=== PATIENT | female | born 1980 | race African-American/Black ===

== ENCOUNTER 2016-09-16 16:00 | Inpatient (IN) | payer OTHER ==
[2016-09-16] MEDS ORDERED: BUTORPHANOL TARTRATE 1 MG/ML VIAL IVPB ONE (16:43)
[2016-09-16] MEDS ORDERED: PROMETHAZINE HCL 25 MG/1 ML VIAL IVPUSH ONE (16:43)
[2016-09-16] MEDS ORDERED: ELECTROLYTE-148 SOLN 1,000 ML IV SCH (16:45)
[2016-09-16] MEDS ORDERED: DINOPROSTONE 10 MG VAGINAL SUPPOSITORY VG ONE (16:46)
--- NOTE | 2016-09-16 16:51 | HP ---
Past Medical History - Admission Chief Complaint: Elective Induction History of Present Illness: 35 yo G P LMP EDC EGA 39 weeks for elective induction for cervidil History Source: Patient - Past Medical History ...: 5 ...Para: 3 ...Spon : 1 ...EDC by Bogdan: 09/23/16 - Past Surgical History Hx Myomectomy: No Hx Transabdominal Cerclage: No Additional Surgical History: Leep - Smoking History Smoking history: Never smoked Have you smoked in the past 12 months: No - Alcohol/Substance Use Hx Alcohol Use: No History of Substance Use: reports: None - Social History Usual Living Arrangement: Yes: With Spouse Home Medications - Allergies Allergies/Adverse Reactions: Allergies Allergy/AdvReac Type Severity Reaction Status Date / Time No Known Drug Allergies Allergy Verified 09/14/16 14:57 - Home Medications Home Medications: Ambulatory Orders NK [No Known Home Medication] 09/14/16 Review of Systems - Review of Systems Constitutional: reports: No Symptoms Eyes: reports: No Symptoms HENT: reports: No Symptoms Neck: reports: No Symptoms Cardiovascular: reports: No Symptoms Respiratory: reports: No Symptoms Gastrointestinal: reports: No Symptoms Genitourinary: reports: No Symptoms Breasts: reports: No Symptoms Reported Musculoskeletal: reports: No Symptoms Integumentary: reports: No Symptoms Neurological: reports: No Symptoms Endocrine: reports: No Symptoms Hematology/Lymphatic: reports: No Symptoms Psychiatric: reports: No Symptoms Physical Exam - Maternity Constitutional: Yes: Well Nourished, No Distress Neck: Yes: WNL Cardiovascular: Yes: WNL, Regular Rate and Rhythm Breast(s): Yes: WNL - Abdominal Exam/OB Fundal Height: 39 Number of Fetuses: Single Presentation: Vertex Contractions: Yes Heart Rate Location: [facility] Category: I Decelerations: None - Vaginal Exam/OB Dilatation (cm): 2-3 cm Effacement (%): 100 Amniotic Membrane Status: Intact Presentation: Vertex/Position Station: -2 - Physical Exam Edema: No Hemorrhage Risk Assessment - Risk Factors Risk Score: 0 Risk Level: Low Risk Problem List - Problems (1) Elective induction of labor planned Code(s): [id number] - Assessment/Plan IUP at 39 weeks elective induction x 3 Spont ab x 1 Plan cervidil
[2016-09-16 17:25] VITALS: BMI 26.4
[2016-09-16 18:25] LABS: BASOPHIL 0.3 % (0-2.0); EOSINOPHIL 2.3 % (0-4.5); MCH 27.2 pg (25.7-33.7); MCHC 33.8 g/dl (32.0-36.0); MEAN CELL VOLUME 80.6 fl (80-96); MEAN PLT VOLUME 8.7 fl (7.5-11.1); NEUTROPHILS 63.5 % (42.8-82.8); PLATELET COUNT 150 K/MM3 (134-434); RDW 14.8 % (11.6-15.6); WHITE BLOOD COUNT 6.8 K/mm3 (4.0-10.0)
[2016-09-16 18:37] LABS: INR 1.01 (0.82-1.09); PROTHROMBIN TIME (PATIENT) 11.1 SEC (9.98-11.88)
[2016-09-16 18:40] LABS: ACTIVATED PTT 27.4 SECONDS (26.9-34.4)
[2016-09-16 18:53] LABS: CALCIUM 8.7 mg/dL (8.5-10.1); CREATININE 0.7 mg/dL (0.55-1.02)
[2016-09-17] MEDS ORDERED: OXYTOCIN 15 UNITS/ LR 250 ML 250 ML IVPB SCH (04:30)
[2016-09-17] MEDS ORDERED: WITCH HAZEL 50% (TUCKS) 40 PAD/JAR PAD TP PRN (05:05)
[2016-09-17] MEDS ORDERED: BISACODYL 10 MG SUPP.RECT RC PRN (05:05)
[2016-09-17] MEDS ORDERED: ACETAMINOPHEN 325 MG TABLET (FP) PO PRN (05:05)
[2016-09-17] MEDS ORDERED: BENZOCAINE 20% 57 GM BOTTLE TP PRN (05:05)
[2016-09-17] MEDS ORDERED: IBUPROFEN 600 MG TABLET (FP) PO PRN (05:05)
[2016-09-17] MEDS ORDERED: METHYLERGONOVINE MALEATE 0.2 MG/1 ML AMP IM PRN (05:05)
[2016-09-17] MEDS ORDERED: BENZOCAINE 28 GM HEMORRHOIDAL OINTMENT TP PRN (05:05)
--- NOTE | 2016-09-17 05:08 | PN ---
Delivery - Delivery Vaginal Delivery: Spontaneous Type of Anesthesia: Local Episiotomy/Laceration: None EBL (cc): 300 Delivery, Single - Feeding Plan Initial Plan: Elected not to breastfeed exclusively throughout hospitalization Remarks - Remarks Remarks: of a live infant girl over intact perineum. Nose / Oropharynx suction @ perineum. Cord clamped and cut. Placenta expelled spontaneously intact.
[2016-09-17] MEDS ORDERED: D5W-LR W/ 20 UNITS OXYTOCIN 1,000 ML IV SCH (05:15)
[2016-09-17] MEDS: FERROUS SO4 325 MG TABLET (FP) PO SCH ×3 (09:08→17:13)
[2016-09-17] MEDS: PRENATAL VITAMINS W/ FOLIC ACID TABLET (FP) PO SCH (09:08)
--- NOTE | 2016-09-17 16:43 | PN ---
Post Note - Post Date of Delivery: 09/17/16 Post Day: 0 Vital Signs: Vital Signs - 24 hr 09/16/16 09/16/16 09/16/16 18:00 19:00 20:00 Temperature 97.9 F Pulse Rate 80 82 91 H Respiratory 20 20 20 Rate Blood Pressure 109/64 108/60 110/65 09/16/16 09/16/16 09/17/16 21:00 22:00 00:00 Temperature 98.0 F 98.0 F 98.1 F Pulse Rate 89 87 86 Respiratory 20 20 20 Rate Blood Pressure 105/68 97/46 118/59 09/17/16 09/17/16 09/17/16 02:00 03:00 04:00 Temperature 98.7 F 97.9 F 98.4 F Pulse Rate 79 82 110 H Respiratory 20 20 20 Rate Blood Pressure 119/69 114/67 128/79 09/17/16 09/17/16 09/17/16 05:15 05:30 05:45 Temperature Pulse Rate 72 78 79 Respiratory 20 20 20 Rate Blood Pressure 99/72 99/67 102/71 09/17/16 09/17/16 09/17/16 06:00 06:20 09:58 Temperature 98.1 F 98.5 F 98.4 F Pulse Rate 82 73 78 Respiratory 20 18 18 Rate Blood Pressure 114/74 110/61 105/63 09/17/16 14:00 Temperature 98.4 F Pulse Rate 75 Respiratory 18 Rate Blood Pressure 116/56 Labs: Laboratory Results - last 24 hr 09/16/16 09/16/16 09/16/16 17:15 17:15 17:15 WBC 6.8 D RBC 3.77 D Hgb 10.3 L D Hct 30.4 L D MCV 80.6 MCHC 33.8 RDW 14.8 D Plt Count 150 D MPV 8.7 Neutrophils % 63.5 Lymphocytes % 21.5 Monocytes % 12.4 H Eosinophils % 2.3 D Basophils % 0.3 INR 1.01 PTT (Actin FS) 27.4 Sodium 139 Potassium 3.9 Chloride 104 Carbon Dioxide 25 D Anion Gap 10 BUN 8 D Creatinine 0.7 Random Glucose 71 L D Calcium 8.7 RPR Titer Blood Type Antibody Screen 09/16/16 09/16/16 17:15 17:15 WBC RBC Hgb Hct MCV MCHC RDW Plt Count MPV Neutrophils % Lymphocytes % Monocytes % Eosinophils % Basophils % INR PTT (Actin FS) Sodium Potassium Chloride Carbon Dioxide Anion Gap BUN Creatinine Random Glucose Calcium RPR Titer Nonreactive Blood Type A POSITIVE Antibody Screen Negative - Subjective Subjective: No Complaints - Objective Afebrile: Yes Breast: Not engorged Abdomen: Soft, Non-tender Uterus: Fundus firm, Non-tender Vagina: Scant lochia Extremities: Non-tender - Assessment/Plan (1) Elective induction of labor planned Assessment: S/P Normal Plan: Routine Care
--- NOTE | 2016-09-18 06:56 | DS ---
Physical Exam-[employer] Vital Signs: Vital Signs Temperature 97.9 F 09/18/16 01:00 Pulse Rate 85 09/18/16 01:00 Respiratory Rate 18 09/18/16 01:00 Blood Pressure 128/72 09/18/16 01:00 O2 Sat by Pulse Oximetry (%) 99 09/17/16 21:47 Constitutional: Yes: Well Nourished, No Distress Gastrointestinal: Yes: WNL, Normal Bowel Sounds, Soft ....Post : Yes: Uterus firm, Uterus non-tender Breast(s): Yes: WNL Musculoskeletal: Yes: WNL Extremities: Yes: WNL Edema: No Labs: CBC, BMP 09/16/16 17:15 09/16/16 17:15 Delivery - Delivery Vaginal Delivery: Spontaneous Type of Anesthesia: Local Episiotomy/Laceration: None EBL (cc): 300 Delivery, Single - Stages of Labor Date 1st Stage Initiatied: 09/17/16 Time 1st Stage Initiated: 02:30 Date 2nd Stage Initiated: 09/17/16 Time 2nd Stage Initiated: 04:45 Date of Delivery: 09/17/16 Time of Delivery: 04:55 Time Placenta Delivered: 04:58 - Condition of Infant [employer] Present: No Infant Gender: Female Weight: 7 lb 2 oz Position: OT Total Hours ROM (Hrs/Mins): 3h25m - 1 Minute Total Score: 9 5 Minutes Total Score: 9 - Ferney Feeding Plan Initial Plan: Elected not to breastfeed exclusively throughout hospitalization Discharge Summary Reason For Visit: INDUCTION OF LABOR Current Active Problems Elective induction of labor planned (Acute) Procedures: Principal: normal vaginal delivery Hospital Course: unremarkable Condition: Good - Instructions Diet, Activity, Other Instructions: Physical activity Resume your normal everyday activity as tolerated no heavy lifting or exercise until seen by your surgeon. You may walk unlimited delia of and climb stairs. You may resume driving the car when you feel safe and comfortable behind the wheel. No sexual activity as instructed. Wound care If you have a bandage, leave it on, and keep dry for 48-72 hours. After that time discard the outer bandage. If they are tapes on the skin under the out of bandage leave them in place. They will peel off in the next 7 to 10 days. Do Not Peel them off. You may shower the day after surgery. If there are tapes present on the skin, you may shower over them. Diet There are no dietary restrictions. Eat healthy, high-fiber foods. Drink 6 to 8 glasses of liquid each day. This will assist in keeping your bowels are regular. Pain management You may take Tylenol or acetaminophen or Ibuprofen (for example, Motrin, Advil etc.) from my pain prescription medication is ordered should be taken as prescribed for moderate to severe pain. Call MD for any of the following: Severe pain not relieved by medication Fever of 101 or higher Excessive bleeding or drainage on dressing Inability to urinate Referrals: Rosa Beatty MD [Staff Physician] - Disposition: HOME - Home Medications Comprehensive Discharge Medication List: Ambulatory Orders NK [No Known Home Medication] 09/14/16
[2016-09-18 08:32] LABS: BASOPHIL 0.2 % (0-2.0); EOSINOPHIL 2.6 % (0-4.5); MCH 27.2 pg (25.7-33.7); MCHC 33.7 g/dl (32.0-36.0); MEAN CELL VOLUME 80.6 fl (80-96); MEAN PLT VOLUME 8.5 fl (7.5-11.1); NEUTROPHILS 59.5 % (42.8-82.8); PLATELET COUNT 134 K/MM3 (134-434); WHITE BLOOD COUNT 7.8 K/mm3 (4.0-10.0)
[2016-09-18] MEDS: FERROUS SO4 325 MG TABLET (FP) PO SCH ×3 (09:48→18:53)
[2016-09-18] MEDS: PRENATAL VITAMINS W/ FOLIC ACID TABLET (FP) PO SCH (09:48)
--- NOTE | 2016-09-18 09:50 | PN ---
Post Progress Note - Subjective Subjective: Pt feeling well. No complaints. Tolerating diet, voiding, ambulating, passing flatus. VB minimal. Feels well. Type of Delivery: Vital Signs: Vital Signs Temperature 97.9 F 09/18/16 01:00 Pulse Rate 85 09/18/16 01:00 Respiratory Rate 18 09/18/16 01:00 Blood Pressure 128/72 09/18/16 01:00 O2 Sat by Pulse Oximetry (%) 99 09/17/16 21:47 Uterus: Yes: Fundus Firm, Fundus below umbilicus Abdomen/GI: Yes: Abdomen soft Lochia: Yes: Rubra Lochia, amount: Small Extremities: Yes: Calves non-tender. No: Edema Perineum: Yes: Intact Activity: Ambulating - Labs Labs: CBC WBC 7.8 K/mm3 (4.0-10.0) 09/18/16 06:30 RBC 4.07 M/mm3 (3.60-5.2) 09/18/16 06:30 Hgb 11.1 GM/dL (10.7-15.3) 09/18/16 06:30 Hct 32.8 % (32.4-45.2) 09/18/16 06:30 MCV 80.6 fl (80-96) 09/18/16 06:30 MCHC 33.7 g/dl (32.0-36.0) 09/18/16 06:30 RDW 15.0 % (11.6-15.6) 09/18/16 06:30 Plt Count 134 K/MM3 (134-434) 09/18/16 06:30 MPV 8.5 fl (7.5-11.1) 09/18/16 06:30 Neutrophils % 59.5 % (42.8-82.8) 09/18/16 06:30 Lymphocytes % 25.6 % (8-40) 09/18/16 06:30 Monocytes % 12.1 % (3.8-10.2) H 09/18/16 06:30 Eosinophils % 2.6 % (0-4.5) 09/18/16 06:30 Basophils % 0.2 % (0-2.0) 09/18/16 06:30 Other Findings, Remarks: Lungs: CTAB CV: RRR Problem List - Problems (1) Vaginal delivery Code(s): O80 - ENCOUNTER FOR FULL-TERM UNCOMPLICATED DELIVERY Assessment/Plan 35 y/o PPD#1 s/p normal - AFVSS - Hgb 11.1 post delivery - encourage ambulation - routine care - PO pain meds, regular diet discharged home in a.m.
[2016-09-18] MEDS ORDERED: INFLUENZA VACCINE 45 MCG/0.5 ML (MDV 16-17) IM ONE (10:00)
[2016-09-18] MEDS ORDERED: DIPHTH,PERTUSS(ACELL),TET 0.5 ML DISP.SYRIN IM ONE (10:00)
[2016-09-18] MEDS ORDERED: INFLUENZA VACCINE 60 MCG/0.5 ML (P/F DISP.SYRIN 16-17) IM ONE (10:00)
[2016-09-18] MEDS ORDERED: SENNOSIDES/DOCUSATE COMBO (SENNA PLUS) TABLET (UD) PO PRN (22:00)
--- NOTE | 2016-09-19 08:38 | PN ---
Post Progress Note Post Day: 2 Type of Delivery: Vital Signs: Vital Signs Temperature 98.0 F 09/18/16 21:54 Pulse Rate 70 09/18/16 21:54 Respiratory Rate 20 09/18/16 21:54 Blood Pressure 112/68 09/18/16 21:54 O2 Sat by Pulse Oximetry (%) 99 09/17/16 21:47 Breast Exam: Yes: Soft Uterus: Yes: Fundus Firm Abdomen/GI: Yes: Abdomen soft Lochia: Yes: Serosa Lochia, amount: Moderate Extremities: Yes: Calves non-tender Perineum: Yes: Laceration Activity: Ambulating - Labs Labs: CBC WBC 7.8 K/mm3 (4.0-10.0) 09/18/16 06:30 RBC 4.07 M/mm3 (3.60-5.2) 09/18/16 06:30 Hgb 11.1 GM/dL (10.7-15.3) 09/18/16 06:30 Hct 32.8 % (32.4-45.2) 09/18/16 06:30 MCV 80.6 fl (80-96) 09/18/16 06:30 MCHC 33.7 g/dl (32.0-36.0) 09/18/16 06:30 RDW 15.0 % (11.6-15.6) 09/18/16 06:30 Plt Count 134 K/MM3 (134-434) 09/18/16 06:30 MPV 8.5 fl (7.5-11.1) 09/18/16 06:30 Neutrophils % 59.5 % (42.8-82.8) 09/18/16 06:30 Lymphocytes % 25.6 % (8-40) 09/18/16 06:30 Monocytes % 12.1 % (3.8-10.2) H 09/18/16 06:30 Eosinophils % 2.6 % (0-4.5) 09/18/16 06:30 Basophils % 0.2 % (0-2.0) 09/18/16 06:30 Assessment/Plan condition is stable, s/p day 2 discharge home today continue vitamins f/u in 4 weeks.
[2016-09-19] MEDS: FERROUS SO4 325 MG TABLET (FP) PO SCH (09:18)
[2016-09-19] MEDS: PRENATAL VITAMINS W/ FOLIC ACID TABLET (FP) PO SCH (09:19)
[2016-09-19 11:28] VITALS: BP 113/67; PULSE 83; TEMP 98.3
== END 2016-09-19 11:10 | disposition home or self-care (01) | DRG 560 ==
LOC: JLDR 16:00 → J3W 09-17 06:43
PROVIDERS: ADMIT Obstetrics & Gynecology; ATTEND Obstetrics & Gynecology
PROC: 10E0XZZ Delivery of Products of Conception, External Approach (ICD-10-PCS; principal; 2016-09-17)
PROC: 3E0P7GC Introduction of Other Therapeutic Substance into Female Reproductive, Via Natural or Artificial Opening (ICD-10-PCS; 2016-09-17)
DX: O80 Encounter for full-term uncomplicated delivery (principal); Z3A.39 39 weeks gestation of pregnancy; Z37.0 Single live birth
CPT/HCPCS: 36415; 59409; 80048; 85025; 85610; 85730; 86593; 86762; 86850; 86900; 86901; 90686; 90715; G0008

== ENCOUNTER 2016-09-29 16:12 | Day surgery (SDC) | payer OTHER ==
--- NOTE | 2016-09-29 16:44 | PDOC ---
History of Present Illness - History of Present Illness Initial Comments: 09/29/16 16:55 The patient is a 35 year old female s/p vaginal delivery on September 17 with a past medical hx of anemia who presents to the ED for evaluation of heavy vaginal bleeding. The patient states she has been bleeding since her delivery. She reports today she started to notice large clots in the blood. She states she went to her [facility] today for a sonogram. She reports the sonogram room was filled and her OB sent her to the ED for a sonogram and further evaluation. The patient states she has never experienced bleeding like this in the past. She reports this was her fourth child and denies a hx of miscarriages. The patient denies chest pain, SOB The patient denies fever, chills The patient denies abdominal pain, nausea, vomiting, diarrhea Social: No toxic habits reported PCP: Dr. Unger <Anita Freeman - Last Filed: 09/29/16 19:07> <Soraida Loo - Last Filed: 09/29/16 20:02> - General Chief Complaint: Vaginal Bleeding Stated Complaint: VAGINAL BLEEDING Time Seen by Provider: 09/29/16 16:34 Past History <Anita Freeman - Last Filed: 09/29/16 19:07> - Past Medical History Anemia: No Asthma: No Cancer: No Cardiac Disorders: No CVA: No COPD: No CHF: No Dementia: No Diabetes: No GI Disorders: No Disorders: No HTN: No Hypercholesterolemia: No Liver Disease: No Seizures: No Thyroid Disease: No - Surgical History Abdominal Surgery: No Appendectomy: No Cardiac Surgery: No Cholecystectomy: No Lung Surgery: No Neurologic Surgery: No Orthopedic Surgery: No - Psycho/Social/Smoking Cessation Hx Smoking History: Never smoked Have you smoked in the past 12 months: No Hx Alcohol Use: No Drug/Substance Use Hx: No Substance Use Type: None Hx Substance Use Treatment: No <Soraida Loo - Last Filed: 09/29/16 20:02> - Past Medical History Allergies/Adverse Reactions: Allergies Allergy/AdvReac Type Severity Reaction Status Date / Time No Known Drug Allergies Allergy Verified 09/29/16 17:00 Home Medications: Ambulatory Orders NK [No Known Home Medication] 09/29/16 Review of Systems - Review of Systems Able to Perform ROS?: Yes Comments:: 09/29/16 16:56 CONSTITUTIONAL: Absent: fever, chills, diaphoresis, generalized weakness, malaise, loss of appetite HEENT: Absent: rhinorrhea, nasal congestion, throat pain, throat swelling, difficulty swallowing, mouth swelling, ear pain, eye pain, visual Changes CARDIOVASCULAR: Absent: chest pain, syncope, palpitations, irregular heart rate, lightheadedness , peripheral edema RESPIRATORY: Absent: cough, shortness of breath, dyspnea with exertion, orthopnea, wheezing, stridor, hemoptysis GASTROINTESTINAL: Absent: abdominal pain, abdominal distension, nausea, vomiting, diarrhea, constipation, melena, hematochezia GENITOURINARY: +Vaginal bleeding. Absent: dysuria, frequency, urgency, hesitancy, hematuria, flank pain, genital pain MUSCULOSKELETAL: Absent: myalgia, arthralgia, joint swelling SKIN: Absent: rash, itching, pallor NEUROLOGIC: Absent: headache, focal weakness or paresthesias, dizziness, unsteady gait, seizure, mental status changes, bladder or bowel incontinence PSYCHIATRIC: Absent: anxiety, depression, suicidal or homicidal ideation, hallucinations. <Anita Freeman - Last Filed: 09/29/16 19:07> *Physical Exam - Physical Exam Comments: 09/29/16 16:56 GENERAL: Well developed, well nourished. Awake and alert. No acute distress. HEENT: Normocephalic, atraumatic. PERRLA, EOMI. No conjunctival pallor. Sclera are non- icteric. Moist mucous membranes. Oropharynx is clear. NECK: Supple. Full ROM. No JVD. Carotid pulses 2+ and symmetric, without bruits. No thyromegaly. No lymphadenopathy. CARDIOVASCULAR: Regular rate and rhythm. No murmurs, rubs, or gallops. Distal pulses are 2+ and symmetric. PULMONARY: No evidence of respiratory distress. Lungs clear to auscultation bilaterally. No wheezing, rales or rhonchi. ABDOMINAL: Soft. Non-tender. Non-distended. No rebound or guarding. No organomegaly. Normoactive bowel sounds. MUSCULOSKELETAL Normal range of motion at all joints. No bony deformities or tenderness. No CVA tenderness. EXTREMITIES: No cyanosis. No clubbing. No edema. No calf tenderness. SKIN: Warm and dry. Normal capillary refill. No rashes. No jaundice. NEUROLOGICAL: Alert, awake, appropriate. Cranial nerves 2-12 intact. No deficits to light touch and temperature in face, upper extremities and lower extremities. PSYCHIATRIC: Cooperative. Good eye contact. Appropriate mood and affect. <Anita Freeman - Last Filed: 09/29/16 19:07> ED Treatment Course - LABORATORY CBC & Chemistry Diagram: 09/29/16 17:54 09/29/16 17:54 - RADIOLOGY Radiograph Interpretation: 09/29/16 19:03 Transvaginal ultrasound Clinical information: evaluate for retained products of conception Nonspecific heterogeneous material is seen within the length of the endometrial cavity. This heterogeneous material demonstrates a thickness of approximately 1.5 cm. The endometrium is mildly thickened measuring 1 cm. Overall uterine size is approximately 13 x 9 x 7 cm. The left ovary appears unremarkable. The right ovary could not be definitely visualized. No free intraperitoneal fluid is seen. Impression: Nonspecific heterogeneous material is seen within the endometrial cavity as discussed. This appearance could be on the basis of clotted blood and/or retained parts of conception. Correlate clinically. Reported By: Frank Prakash MD 09/29/16 [id number] <Anita Freeman - Last Filed: 09/29/16 19:07> - LABORATORY CBC & Chemistry Diagram: 09/29/16 17:54 09/29/16 17:54 <Soraida Loo - Last Filed: 09/29/16 20:02> Medical Decision Making - Medical Decision Making 09/29/16 19:[address] Beatty via answering service, awaiting call back. <Anita Freeman - Last Filed: 09/29/16 19:07> - Medical Decision Making 09/29/16 17:10 35 yo female gave 09/17/[address] Milner today for heavy vag bleeding - concern for retained products -she has large blood clots the size of grapefruit and feels dizzy she's she does have a h/o anemia -awaiting cbc and transvaginal US 09/29/16 19:04 pt is feeling dizzy and lightheaded, systolic BP 62. Placed in trenelenberg , IVF given - hgb 11, hct 34.7 09/29/16 19:58 ultrasound shows increased endometrial thickness, lg clots -spoke w Dr Milner who will take this pt to OR for d and c <Soraida oLo - Last Filed: 09/29/16 20:02> *DC/Admit/Observation/Transfer - Attestations Scribe Attestion: 09/29/16 16:54 Documentation prepared by Anita Freeman, acting as medical physics researcher for Soraida Loo MD/DO. <Anita Freeman - Last Filed: 09/29/16 19:07> - Discharge Dispostion Admit: Yes <Soraida Loo - Last Filed: 09/29/16 20:02> Diagnosis at time of Disposition: Encounter for care or examination of mother immediately after delivery, Dizziness, Excessive vaginal bleeding Hypotension Qualifiers: Hypotension type: orthostatic hypotension Qualified Code(s): I95.1 - Orthostatic hypotension - Referrals Referrals: Angela Unger MD [Primary Care Provider] -
[2016-09-29 18:04] LABS: BASOPHIL 0.5 % (0-2.0); EOSINOPHIL 3.9 % (0-4.5); MCH 26.6 pg (25.7-33.7); MCHC 32.8 g/dl (32.0-36.0); MEAN PLT VOLUME 9.1 fl (7.5-11.1); NEUTROPHILS 46.3 % (42.8-82.8); PLATELET COUNT 208 K/MM3 (134-434); RDW 15.3 % (11.6-15.6); WHITE BLOOD COUNT 5.1 K/mm3 (4.0-10.0)
[2016-09-29 18:15] LABS: INR 1.17 (0.82-1.09); PROTHROMBIN TIME (PATIENT) 12.9 SEC (9.98-11.88)
[2016-09-29 18:27] LABS: ALBUMIN 3.3 g/dl (3.4-5.0); BILIRUBIN,TOTAL 0.4 mg/dL (0.2-1.0); CALCIUM 8.8 mg/dL (8.5-10.1); CREATININE 1.1 mg/dL (0.55-1.02); TOT PROT 6.6 g/dl (6.4-8.2)
[2016-09-29] MEDS ORDERED: morphine CARPU-JECT 2 MG/1 ML DISP.SYRIN ONE (18:45)
[2016-09-29] MEDS ORDERED: morphine CARPU-JECT 2 MG/1 ML DISP.SYRIN IVPUSH ONE (18:45)
[2016-09-29] MEDS ORDERED: SODIUM CHLORIDE 0.9% 1000 ML INFUS.BAG IV ONE (18:55)
[2016-09-29] MEDS ORDERED: ACETAMINOPHEN INJECTION 100 ML IVPB ONE (20:04)
[2016-09-29] MEDS ORDERED: ONDANSETRON 4 MG/2 ML VIAL ONE ×2 (20:14→22:35)
[2016-09-29 21:08] LABS: BASOPHIL 0.2 % (0-2.0); EOSINOPHIL 0.3 % (0-4.5); MCH 26.5 pg (25.7-33.7); MCHC 32.2 g/dl (32.0-36.0); MEAN CELL VOLUME 82.3 fl (80-96); NEUTROPHILS 77.2 % (42.8-82.8); PLATELET COUNT 208 K/MM3 (134-434); RDW 15.3 % (11.6-15.6); WHITE BLOOD COUNT 12.7 K/mm3 (4.0-10.0)
[2016-09-29] MEDS ORDERED: PROPOFOL 20 ML ONE (21:58)
[2016-09-29] MEDS ORDERED: SUCCINYLCHOLINE CHLORIDE 200 MG/10 ML VIAL ONE (21:58)
[2016-09-29] MEDS ORDERED: MIDAZOLAM HCL 2 MG/2 ML SINGLE DOSE VIAL ONE (21:59)
[2016-09-29] MEDS ORDERED: LIDOCAINE HCL/PF 2% SDV 5ML VIAL ONE (22:00)
[2016-09-29] MEDS ORDERED: IBUPROFEN 400 MG TABLET (FP) PO PRN (22:21)
[2016-09-29] MEDS ORDERED: ACETAMINOPHEN 325 MG TABLET (FP) PO PRN (22:21)
[2016-09-29] MEDS ORDERED: PHENYLEPHRINE HCL 10 MG/1 ML SINGLE DOSE VIAL ONE (22:21)
--- NOTE | 2016-09-29 22:23 | HP ---
Satellite [facility] - Chief Complaint Chief Complaint: Post hemorrhage History Source: Patient - Past Medical History Allergies/Adverse Reactions: Allergies Allergy/AdvReac Type Severity Reaction Status Date / Time No Known Drug Allergies Allergy Verified 09/29/16 17:00 ...LMP: 06/27/12 ...: No - Current Medications Current Medications: Home Medications Medication Instructions Recorded NK [No Known Home Medication] 09/29/16 Satellite Physical Exam - Physical Examination Vital Signs: Vital Signs Period Temp Pulse Resp BP Sys/Jenkins Pulse Ox Last 24 Hr 98.2 F 70-87 16-18 74-119/48-88 97-100 General Appearance: Well Nourished, Well Developed Lung: Clear to auscultation Heart: Regular rate & rhythm Breasts: Soft, Non-Tender Abdomen: Soft Extremities: No edema Pelvic Exam: Within normal limits External Genitalia, Within normal limits Cervix, Within normal limits [place], Other Vagina (vaginal bleeding), Other Uterus (enlarged 12 cm) Neurological: Intact, Alert, Oriented Satellite Impression/Plan - Impression/Plan Impression: , hemorrhage Operative Procedure: Dilation curettage Date to be Performed: 09/29/16
[2016-09-29] MEDS ORDERED: ceFAZolin SODIUM 1 GM VIAL ONE (22:26)
[2016-09-29] MEDS ORDERED: ceFAZolin SODIUM 1 GM VIAL IVPB ONE (22:26)
[2016-09-29] MEDS ORDERED: OXYTOCIN 10 UNITS/ML VIAL ONE ×2 (22:31→22:34)
[2016-09-29] MEDS ORDERED: DEXAMETHASONE SOD PHOSPHATE 4 MG/1 ML VIAL ONE (22:35)
[2016-09-29] MEDS ORDERED: ONDANSETRON 4 MG/2 ML VIAL IVPUSH PRN (22:54)
[2016-09-29] MEDS ORDERED: LACTATED RINGERS SOLUTION 1,000 ML IV SCH (23:00)
[2016-09-30 01:18] VITALS: BMI 25.0
[2016-09-30 06:10] VITALS: TEMP 97.9
--- NOTE | 2016-09-30 06:44 | OP ---
Operative Note - Note: Operative Date: 09/29/16 Pre-Operative Diagnosis: hemorrhage Findings: Dilation & curettage Post-Operative Diagnosis: Same as Pre-op Surgeon: Rosa Beatty Anesthesiologist/WOOD HE[employer] FITTER MACHINE: Omer Riley Anesthesia: General Estimated Blood Loss (mls): 400 Operative Report Dictated: Yes
--- NOTE | 2016-09-30 06:53 | PN ---
Progress Note (SOAP) - Subjective Chief Complaint: Pt seen at bedside doing well no pain no bleeding after DC Pt s/p transfusion 1 unit awiting cbc - Current Medications Current Medications: Active Medications Acetaminophen (Tylenol -) 650 mg PO Q4H PRN PRN Reason: FEVER OR PAIN Lactated Ringer's (Lactated Ringers Solution) 1,000 mls @ 75 mls/hr IV ASDIR ALTAF Ibuprofen (Motrin -) 400 mg PO Q4H PRN PRN Reason: FEVER - Objective Vital Signs: Vital Signs Temperature 97.9 F 09/30/16 06:00 Pulse Rate 97 H 09/30/16 06:00 Respiratory Rate 18 09/30/16 06:00 Blood Pressure 96/67 09/30/16 06:00 O2 Sat by Pulse Oximetry (%) 98 09/30/16 00:00 Constitutional: Yes: Well Nourished, No Distress Gastrointestinal: Yes: WNL, Soft ....Post : Yes: Uterus firm, Uterus non-tender Breast(s): Yes: WNL Musculoskeletal: Yes: WNL Labs Lab Results: CBC, BMP 09/29/16 21:00
--- NOTE | 2016-09-30 07:28 | OP ---
DATE OF OPERATION: 09/29/2016 PREOPERATIVE DIAGNOSIS: hemorrhage. OPERATION: Suction dilatation and curettage. POSTOPERATIVE DIAGNOSIS: hemorrhage. SURGEON: Rosa Beatty MD ANESTHESIA: General. ANESTHESIOLOGIST: Omer Riley MD PROCEDURE: Patient was taken to the operating room, placed in dorsal lithotomy position, prepped and draped in the usual sterile fashion. A speculum was placed in the vagina, anterior lip of the cervix was grasped with a single-tooth tenaculum. Speculum was placed in the vagina, and a large amount of clots was seen. Tenaculum was placed in the cervix, and No. 10 suction curette was performed. Suction curettage followed by sharp curettage was performed. Estimated 400 mL was evacuated. Uterus was then massaged, and Pitocin was then given. Hemostasis was achieved. All instruments were then removed. Patient tolerated the procedure well. Estimated blood loss was 400 mL. ROSA BEATTY M.D. KATIA/[id number]
[2016-09-30 07:31] LABS: BASOPHIL 0.1 % (0-2.0); MCH 27.7 pg (25.7-33.7); MCHC 33.9 g/dl (32.0-36.0); MEAN CELL VOLUME 81.7 fl (80-96); MEAN PLT VOLUME 8.8 fl (7.5-11.1); NEUTROPHILS 86.9 % (42.8-82.8); PLATELET COUNT 143 K/MM3 (134-434); RDW 14.8 % (11.6-15.6)
[2016-09-30 08:30] VITALS: BP 91/51; PULSE 89
--- NOTE | 2016-10-05 14:00 | PATH ---
Surgical Pathology Report Patient Name: SHIVA LIMA [facility]. Rec. #: [id number] /Age/Gender: 1980 (Age: 35) / F Account: [id number] Location: AMBULATORY SURG Taken: 09/29/2016 Received: 09/30/2016 Reported: 10/05/2016 Physicians: Rosa Beatty M.D. Specimen(s) Received UTERINE CONTENTS Clinical History bleeding Final Diagnosis UTERINE PRODUCT: SMALL FRAGMENTS OF PLACENTAL TISSUE ADMIXED WITH FRAGMENTS OF INACTIVE ENDOMETRIUM MYOMETRIUM, FIBRINOHEMORRHAGIC AND NECROINFLAMMATORY DEBRIS. Electronically Signed Allan Turner M.D. Gross Description Received in formalin, labeled "uterine products" is a 15.0 x 13.5 x 1.2 cm aggregate of red-brown soft tissue fragments admixed with blood clot. No definite placental tissue is grossly identified. Hand Molder Meat sections are submitted in 10 cassettes. /09/30/2016 saudi09/30/2016
== END 2016-09-30 11:25 | disposition home or self-care (01) ==
LOC: JER 16:12 → JERBED 20:02 → JASUSAT 20:02 → UNDOADMIN 20:02 → JERBED 09-30 → J3W 09-30 → JASUSAT 09-30 11:25
PROVIDERS: ATTEND Obstetrics & Gynecology
PROC: 0UDB7ZZ Extraction of Endometrium, Via Natural or Artificial Opening (ICD-10-PCS; principal; 2016-09-29 22:17)
DX: O72.2 Delayed and secondary postpartum hemorrhage (principal)
CPT/HCPCS: 36415; 36430; 76830-TC; 80053; 85025; 85610; 86850; 86900; 86901; 86922; 88305-TC; 94760; 99285-25; P9038; P9058

== ENCOUNTER 2019-01-16 10:04 | Emergency (ER) | payer OTHER ==
[2019-01-16 10:11] VITALS: TEMP 98.3; BMI 25.8
--- NOTE | 2019-01-16 10:32 | PDOC ---
*Physical Exam - Vital Signs Last Vital Signs Temp Pulse Resp BP Pulse Ox 98.3 F 79 18 116/79 100 01/16/19 10:08 01/16/19 10:08 01/16/19 10:08 01/16/19 10:08 01/16/19 10:08 Medical Decision Making - Medical Decision Making 01/16/19 10:32 38y F presents with abd pain. pt had +hcg at bankruptcy attorney, had US with +IUP but presents with worsening pain The patient was seen and evaluated in conjunction with CAMACHO Vallejo under my direct supervision, ancillary studies were reviewed. I independently interviewed and evaluated the patient and I agree with the plan as outlined by CAMACHO Vallejo. *DC/Admit/Observation/Transfer - Discharge Dispostion Condition at time of disposition: Stable - Referrals - Patient Instructions - Post Discharge Activity
[2019-01-16] MEDS ORDERED: SODIUM CHLORIDE 500 ML IV STA (10:59)
[2019-01-16] MEDS ORDERED: ACETAMINOPHEN 1000 MG/100 ML VIAL (NON FORMULARY) IVPB ONE (10:59)
[2019-01-16] MEDS ORDERED: ACETAMINOPHEN INJECTION 100 ML IVPB ONE (11:01)
[2019-01-16 11:03] LABS: URINE APPEARANCE CLOUDY; URINE BILIRUBIN NEGATIVE (NEGATIVE); URINE COLOR YELLOW; URINE GLUCOSE (UA) NEGATIVE (NEGATIVE); URINE KETONE 4+ (NEGATIVE); URINE LEUK ESTERASE NEGATIVE (NEGATIVE); URINE NITRITE NEGATIVE (NEGATIVE); URINE PROTEIN NEGATIVE (NEGATIVE)
[2019-01-16 11:11] LABS: BASO % 0.9 % (0-2.0); EOS % 1.2 % (0-4.5); HEMATOCRIT 39.8 % (32.4-45.2); HEMOGLOBIN 13.7 GM/dL (10.7-15.3); LYMPH % 30.3 % (8-40); MCH 29.2 pg (25.7-33.7); MCHC 34.5 g/dl (32.0-36.0); MEAN CELL VOLUME 84.5 fl (80-96); MEAN PLT VOLUME 8.5 fl (7.5-11.1); MONO % 11.1 % (3.8-10.2); NEUT % 56.5 % (42.8-82.8); PLATELET COUNT 229 K/MM3 (134-434); RBC 4.71 M/mm3 (3.60-5.2); RDW 13.1 % (11.6-15.6); WHITE BLOOD COUNT 5.2 K/mm3 (4.0-10.0)
--- NOTE | 2019-01-16 11:13 | PDOC ---
History of Present Illness - General Chief Complaint: Vaginal Bleeding Stated Complaint: VAGINAL BLEEDING Time Seen by Provider: 01/16/19 10:20 History Source: Patient Exam Limitations: Clinical Condition - History of Present Illness Initial Comments: 01/16/19 11:08 Patient with no significant past medical history LMP November 30 present with complaint of 2 days of history cramping right pelvic pain, vaginal spotting and discharge. Patient reports seen [facility] a week ago and has seen [facility] 3 weeks prior for depo injection which test was negative 3 weeks ago and was repeated again a week ago and was positive after depo was given. Reported vaginal spotting which has improved. Patient reported [facility] did ultrasound a week ago and saw gestational sac and was advised that D&C will be done in 2 weeks if sac does not come out, but she could not wait for 2 weeks as she is having pain. Patient has not taken anything for pain.Patient reported vomiting and unable to keep any food down. Denies fever, chills, diarrhea or weakness. Denies any other symptoms Timing/Duration: other (2 days) Past History - Past Medical History Allergies/Adverse Reactions: Allergies Allergy/AdvReac Type Severity Reaction Status Date / Time No Known Drug Allergies Allergy Verified 09/29/16 17:00 Home Medications: Ambulatory Orders NK [No Known Home Medication] 01/16/19 Anemia: No Asthma: No Cancer: No Cardiac Disorders: No CVA: No COPD: No CHF: No Dementia: No Diabetes: No GI Disorders: No Disorders: No HTN: No Hypercholesterolemia: No Liver Disease: No Seizures: No Thyroid Disease: No - Surgical History Abdominal Surgery: No Appendectomy: No Cardiac Surgery: No Cholecystectomy: No Lung Surgery: No Neurologic Surgery: No Orthopedic Surgery: No - Reproductive History Is Patient Now?: Yes (#): 6 Para: 4 - Suicide/Smoking/Psychosocial Hx Smoking History: Never smoked Have you smoked in the past 12 months: No Information on smoking cessation initiated: No Hx Alcohol Use: No Drug/Substance Use Hx: No Substance Use Type: None Hx Substance Use Treatment: No Review of Systems - Review of Systems Able to Perform ROS?: Yes Is the patient limited Macedonian proficient: No Constitutional: No: Chills, Fever HEENTM: No: Symptoms Reported Respiratory: No: Symptoms reported Cardiac (ROS): No: Symptoms Reported ABD/GI: Yes: Nausea, Vomiting, Abdominal cramping (lower abdomen) : Yes: Symptoms Reported, See HPI, Discharge, Pain (right pelvic) All Other Systems: Reviewed and Negative *Physical Exam - Vital Signs Last Vital Signs Temp Pulse Resp BP Pulse Ox 98.3 F 79 18 116/79 100 01/16/19 10:08 01/16/19 10:08 01/16/19 10:08 01/16/19 10:08 01/16/19 10:08 - Physical Exam Comments: 01/16/19 11:15 GENERAL: Well developed, well nourished. Awake and alert. No acute distress.. NECK: Supple. Full ROM. CARDIOVASCULAR: Regular rate and rhythm. No murmurs, rubs, or gallops. Distal pulses are 2+ and symmetric. PULMONARY: No evidence of respiratory distress. ABDOMINAL: Soft. Non-tender. Non-distended. No rebound or guarding. No organomegaly. Normoactive bowel sounds. MUSCULOSKELETAL Normal range of motion at all joints. : moderate amount of non-malodorous light white discharge in vaginal vault. no blood in vaginal vault. cervical os closed. no CMT. no visible lesions SKIN: Warm and dry. Normal capillary refill. NEUROLOGICAL: Alert, awake, appropriate. Gait is normal without ataxia. PSYCHIATRIC: Cooperative. Good eye contact. Appropriate mood General Appearance: Yes: Nourished, Appropriately Dressed, Mild Distress ED Treatment Course - LABORATORY CBC & Chemistry Diagram: 01/16/19 10:35 01/16/19 10:35 - RADIOLOGY Radiology Studies Ordered: Category Date Time Status TRANSVAGINAL US PREG [US] Stat Ultrasound 01/16/19 10:37 Ordered Medical Decision Making - Medical Decision Making 01/16/19 11:13 Patient with no significant past medical history LMP November 30 present with complaint of 2 days of history cramping right pelvic pain, vaginal spotting and discharge. Patient reports seen [facility] and week ago and has seen [facility] 3 weeks prior for dip or injection which test was -3 weeks ago by was repeated again a week ago and was positive after dip was given. Reported vaginal spotting has improved. Patient reported [facility] did ultrasound a week ago in salt gestational sac and was advised that D&C will be done in 2 weeks if sac does not come out, but she could not wait for 2 weeks as she is having pain. Patient has not taken anything for pain.Patient reported vomiting and unable to keep any food down. Denies fever, chills, diarrhea or weakness. Denies any other symptoms Exam significant for moderate amount of white non-malodorous discharge in vaginal vault with mild tenderness to right pelvic. No cervical motion tenderness. No blood in the vaginal vault. Cervical os closed. No adnexal mass on exam. CBC, CMP beta hCG labs ordered. UA and urine culture labs ordered. Transvaginal ultrasound ordered to evaluate for pelvic pain and rule out ectopic. Tylenol 1 g IV ordered for pain. IV hydration normal saline 500 mg ordered. Reassess after lab and imaging results 01/16/19 12:53 CBC and chemistry lab wnl. Beta hcg [id number]. transvaginal ultrasound shows positive IUP with GS and YS but no FP. no adnexal mass on U/S. Patient wishes to do termination of and will try to make early appt with her [facility] and also given alternative clinic info for termination as multiple attempts made to reach patient OB Dr. Beatty without success. Patient stable for discharge *DC/Admit/Observation/Transfer Diagnosis at time of Disposition: Abdominal pain during intrauterine - Discharge Dispostion Disposition: HOME Condition at time of disposition: Stable Decision to Admit order: No - Referrals Referrals: Rosa Beatty MD [Staff Physician] - Marcell Robison [Other] - Patient Instructions Printed Discharge Instructions: Common Discomforts and Bodily Changes During Additional Instructions: Your labs was normal. Your pelvic ultrasounf shows early without heart beat. Follow-up with the [facility] [employer] as discussed for follow-up care. Take Tylenol as needed for pain - Post Discharge Activity
[2019-01-16 11:57] LABS: ALBUMIN 4.4 g/dl (3.4-5.0); BILIRUBIN,TOTAL 1.7 mg/dL (0.2-1); BLOOD UREA NITROGEN 9.6 mg/dL (7-18); CALCIUM 8.9 mg/dL (8.5-10.1); CREATININE 0.9 mg/dL (0.55-1.3); POTASSIUM 3.6 mmol/L (3.5-5.1); TOT PROT 8.1 g/dl (6.4-8.2)
[2019-01-16 14:15] VITALS: BP 118/72; PULSE 76
== END 2019-01-16 14:15 | disposition home or self-care (01) ==
LOC: JER 10:04
PROC: 3E033NZ Introduction of Analgesics, Hypnotics, Sedatives into Peripheral Vein, Percutaneous Approach (ICD-10-PCS; principal; 2019-01-16)
DX: O26.891 Other specified pregnancy related conditions, first trimester (principal); R10.30 Lower abdominal pain, unspecified; Z3A.01 Less than 8 weeks gestation of pregnancy
CPT/HCPCS: 36415; 76817-TC; 80053; 81003; 84702; 85025; 87070; 87086; 87205; 87491; 87591; 96374; 99284-25; J0131

== ENCOUNTER → 2024-01-12 | Day surgery (SDC) | payer OTHER | END | disposition home or self-care (01) | LOC: JRADUS-SUR 08:55 | PROVIDERS: ATTEND Registered Nurse | PROC: 0H9U3ZX Drainage of Left Breast, Percutaneous Approach, Diagnostic (ICD-10-PCS; principal; 2024-01-12) | DX: N60.02 Solitary cyst of left breast (principal) | CPT/HCPCS: 19000; 19001; 76942-TC ==